=== PATIENT | female | born 1965 | race Caucasian/White ===

== ENCOUNTER → 2016-12-27 | Outpatient (CLI) | payer OTHER ==
--- NOTE | 2016-12-27 11:35 | USB ---
Reason for exam: clinical finding. History: Patient is nulliparous. Benign right breast aspiration of the right breast, April 07, 2013. Benign right breast aspiration additional of the right breast, April 07, 2013. Indicated problem(s): palpable abnormality in both breasts. Physical Findings: Nurse Summary: right 1cm 10 o'clock movable, left 9 o'clock 0.5cm and 3 o'clock 0.5cm (nurse dw). US Breast BILAT Right breast ultrasound includes all four quadrants, the retroareolar region and axilla. Finding demonstrates 0.6 x 0.7 x 0.6cm septated, cystic lesion at 12 o'clock, a 0.6 x 0.7 x 0.5cm cystic lesion at 3 o'clock, a 0.8 x 0.7 x 0.4cm cystic lesion at 8 o'clock and a 0.4 x 0.5 x 0.3cm cystic lesion at 10 o'clock. Left breast ultrasound includes all four quadrants, the retroareolar region and axilla. Finding demonstrates a 1.0 x 1.2 x 0.6cm septated, cystic lesion at 1 o'clock, a 1.3 x 1.1 x 0.9cm cystic lesion at 2 o'clock, a 2.2 x 2.4 x 1.7cm cystic lesion at 9 o'clock and a 1.3 x 1.2 x 1.2cm cystic lesion at 9 o'clock. These results were verbally communicated with the patient and result sheet given to the patient on 12/27/16. ASSESSMENT: Probably benign, BI-RAD 3 RECOMMENDATION: Ultrasound of both breasts in 6 months.
== END | disposition home or self-care (01) ==
LOC: RADUSWWP 10:23
PROVIDERS: ATTEND Obstetrics & Gynecology
DX: R92.8 Other abnormal and inconclusive findings on diagnostic imaging of breast (principal)

== ENCOUNTER → 2017-04-04 | Outpatient (CLI) | payer BC, OTHER ==
--- NOTE | 2017-04-05 10:32 | ECHOF ---
Referral Reason:R94.31 Abnormal electrocardiog MEASUREMENTS -------- HEIGHT: 177.8 cm WEIGHT: 74.8 kg BP: 131/79 RVIDd: 2.4 cm (< 3.3) IVSd: 1.1 cm (0.6 - 1.1) LVIDd: 4.2 cm (3.9 - 5.3) LVPWd: 1.1 cm (0.6 - 1.1) IVSs: 1.7 cm LVIDs: 2.6 cm LVPWs: 1.6 cm LAESV Index (A-L): 13.87 ml/m Ao Diam: 2.9 cm (2.0 - 3.7) AV Cusp: 1.9 cm (1.5 - 2.6) LA Diam: 2.6 cm (2.7 - 3.8) MV EXCURSION: 13.666 mm (> 18.000) MV EF SLOPE: 112 mm/s (70 - 150) EPSS: 0.3 cm MV E Jose R: 0.67 m/s MV DecT: 342 ms MV A Jose R: 0.56 m/s MV E/A Ratio: 1.20 RAP: 5.00 mmHg RVSP: 24.21 mmHg FINDINGS -------- Sinus rhythm. This was a technically good study. The left ventricular size is normal. There is borderline concentric left ventricular hypertrophy. Overall left ventricular systolic function is normal with, an EF between 60 - 65 %. The right ventricle is normal in size and function. Normal LA size by volume 22+/-6 ml/m2. The right atrium is normal in size. The aortic valve is trileaflet, and appears structurally normal. No aortic stenosis or regurgitation. The mitral valve leaflets are mildly thickened. Mild mitral regurgitation is present. Trace tricuspid regurgitation present. Right ventricular systolic pressure is normal at < 35 mmHg. There is no evidence of pulmonary hypertension. The pulmonic valve was not well visualized. The aortic root size is normal. Normal inferior vena cava with normal inspiratory collapse consistent with estimated right atrial pressure of 5 mmHg. The pericardium is normal. There is no pericardial effusion. CONCLUSIONS -------- 1. Sinus rhythm. 2. Trace tricuspid regurgitation present. 3. Right ventricular systolic pressure is normal at < 35 mmHg. 4. There is no evidence of pulmonary hypertension. 5. The pulmonic valve was not well visualized. 6. The aortic root size is normal. 7. There is no pericardial effusion. 8. This was a technically good study. 9. The left ventricular size is normal. 10. There is borderline concentric left ventricular hypertrophy. 11. Overall left ventricular systolic function is normal with, an EF between 60 - 65 %. 12. Normal LA size by volume 22+/-6 ml/m2. 13. The aortic valve is trileaflet, and appears structurally normal. No aortic stenosis or regurgitation. 14. The mitral valve leaflets are mildly thickened. 15. Mild mitral regurgitation is present. CRIB PAD MAKER: Rocco Short RDCS
== END | disposition home or self-care (01) ==
LOC: RADECHMAIN 11:25
PROVIDERS: ATTEND Family Medicine
DX: I08.1 Rheumatic disorders of both mitral and tricuspid valves (principal)
CPT/HCPCS: 93306

== ENCOUNTER → 2017-04-24 | Outpatient (CLI) | payer BC ==
--- NOTE | 2017-04-24 13:46 | ECHOS ---
STRESS ECHOCARDIOGRAM DATE OF SERVICE: 04/24/2017 MEDICATIONS:: Lisinopril, Wellbutrin, Cymbalta. BASELINE HEART RATE: 102 BASELINE BLOOD PRESSURE: 111/59 MAXIMUM HEART RATE: 152 MAXIMUM BLOOD PRESSURE: 188/61 85% MPHR: 143 100% MPHR: 168 METS: 9.9 MAXIMUM STAGE REACHED: III TOTAL EXERCISE TIME: 8:15 INDICATION OF THE STUDY: Chest discomfort. STRESS DATA: Pretesting physical examination showed a heart rate 102 beats per minute and pressure of 111/59 mmHg. Baseline EKG showed sinus mechanism. The patient exercised on the treadmill according to Edvin protocol for a total of 8 minutes and 15 seconds and achieved 9.9 METs. Max heart rate was 152, which is about 90% of maximum predicted heart rate. Maximum blood pressure was 188/61 mmHg. Clinically, the patient did not have any symptoms of chest pain or discomfort during the testing or in the recovery time. The EKG showed about 0.[address] changes. ECHOCARDIOGRAM IMAGES: On echocardiogram images from parasternal long axis view, parasternal short-axis view, apical 4 chamber and apical 2 chamber view were obtained as the baseline images, at the peak of the heart rate, as well as on recovery and the echocardiogram images showed overall good augmentation in the left ventricular systolic function without any evidence of wall motion abnormalities consistent with ischemia. CONCLUSION: 1. Good exercise capacity. 2. Mild EKG changes in response to exercise. 3. Normal echocardiogram in response to exercise. JACLYN / TONE: [id number] /
== END | disposition home or self-care (01) ==
LOC: RADNMMAIN 10:58
PROVIDERS: ATTEND Family Medicine
DX: R94.31 Abnormal electrocardiogram [ECG] [EKG] (principal)
CPT/HCPCS: 93017; 93350

== ENCOUNTER → 2017-05-23 | Outpatient (CLI) | payer BC ==
--- NOTE | 2017-05-23 11:28 | MM ---
Reason for exam: follow-up at short interval from prior study. Last mammogram was performed 1 year ago. History: Patient is nulliparous. Benign right breast aspiration of the right breast, April 07, 2013. Benign right breast aspiration additional of the right breast, April 07, 2013. Physical Findings: Nurse Summary: 1 x 1cm nodule in the right breast at 9 o'clock, a 1 x 1.5cm nodule in the right breast at 10 o'clock, a 1 x 1cm nodule in the left breast at 1 o'clock and a 1.5 x 1cm nodule in the left breast at 9 o'clock (nurse ts). MG Diagnostic Mammo w CAD ARPITA Bilateral CC and MLO view(s) were taken. Prior study comparison: May 11, 2016, bilateral MG diagnostic mammo w CAD ARPITA. November 19, 2014, bilateral MG diagnostic mammo w CAD ARPITA. The breast tissue is heterogeneously dense. This may lower the sensitivity of mammography. Finding: There are typically benign multiple circumscribed masses in both breasts, waxing and waning most compatible with benign cysts. No suspicious abnormality. No significant changes in finding since May 11, 2016 and November 19, 2014. These results were verbally communicated with the patient and result sheet given to the patient on 05/23/17. ASSESSMENT: Benign, BI-RAD 2 RECOMMENDATION: Routine screening mammogram of both breasts in 1 year.
--- NOTE | 2017-05-23 11:33 | USB ---
Reason for exam: follow-up at short interval from prior study. History: Patient is nulliparous. Benign right breast aspiration of the right breast, April 07, 2013. Benign right breast aspiration additional of the right breast, April 07, 2013. US Breast BILAT Right breast ultrasound includes all four quadrants, the retroareolar region and axilla. Finding demonstrates a 0.4 x 0.3 x 0.4cm septated, cystic lesion at 12 o'clock, a 0.3 x 0.3 x 0.4cm cystic lesion at 12 o'clock, a 0.7 x 0.7 x 0.5cm cystic lesion at 3 o'clock, a 0.7 x 0.5 x 0.6cm cystic lesion at 8 o'clock and a 0.9 x 0.7 x 0.5cm septated, cystic lesion at 10 o'clock. Left breast ultrasound includes all four quadrants, the retroareolar region and axilla. Finding demonstrates several cystic lesions measuring .7 x 0.6 x 0.5cm at 1 o'clock, 1.4 x 1.2 x 1.1cm at 3 o'clock, 1.3 x 1.2 x 1.1cm at 7 o'clock and 0.8 x 0.7 x 0.6cm at 8 o'clock. These results were verbally communicated with the patient and result sheet given to the patient on 05/23/17. ASSESSMENT: Benign, BI-RAD 2 RECOMMENDATION: Routine screening mammogram of both breasts in 1 year.
--- NOTE | 2017-05-23 14:37 | BD ---
EXAMINATION TYPE: MG DEXA axial skeleton. DATE OF EXAM: 05/23/2017 COMPARISON: NONE CLINICAL HISTORY: screening osteoporosis Height: 5'9 Weight: 188 FRAX RISK QUESTIONS: Alcohol (3 or more units per day): no Family History (Parent hip fracture): no Glucocorticoids (More than 3mos): no (Ex: prednisone, prednisolone, methylprednisolone, dexamethasone, and hydrocortisone). History of Fracture in Adulthood: yes Secondary Osteoporosis: 1. Type 1 Diabetes: no 2. Hyperthyroidism: no 3. Menopause before 45: na 4. Malnutrition: no 5. Chronic liver disease: no Rheumatoid Arthritis: no Current Tobacco Use: no RISK FACTORS HISTORY OF: If Premenopausal, do you have irregular periods: MEDICATIONS: Additional Medications: blood pressure, Additional History: EXAM MEASUREMENTS: Bone mineral densitometry was performed using the [employer] System. Bone mineral density as measured about the Lumbar spine is: ----- L1-L4(G/cm2): 1.265 T Score Values are as follows: ----- L2: 0.0 ----- L3: 1.1 ----- L4: 1.4 ----- L1-L4:0.7 Bone mineral density about the R hip (g/cm2): 0.949 Bone mineral density about the L hip (g/cm2): 0.937 T Score values are as follows: -----R Neck: -0.6 -----L Neck: -0.7 -----R Total: -0.4 -----L Total: -0.2 IMPRESSION: Normal (Values between +1 and -1 indicate normal bone mass). Consider repeating this study in 5 year s or sooner if there is some new clinical indication. NOTE: T-SCORE=SD OF THE YOUNG ADULT MEAN.
== END | disposition home or self-care (01) ==
LOC: RADMAMWWP 09:03
PROVIDERS: ATTEND Obstetrics & Gynecology
DX: R92.8 Other abnormal and inconclusive findings on diagnostic imaging of breast (principal); Z13.820 Encounter for screening for osteoporosis
CPT/HCPCS: 77080; 76641; G0204

== ENCOUNTER 2018-12-30 11:42 | Emergency (ER) | payer MEDICAID ==
[2018-12-30 11:58] VITALS: RESP 18
[2018-12-30] MEDS ORDERED: DEXAMETHASONE SOD PHOSPHATE 10 MG/ML 1 ML VIAL IV STA (12:14)
[2018-12-30] MEDS ORDERED: SODIUM CHLORIDE 0.9% 2,000 ML IV ONE (12:14)
[2018-12-30] MEDS ORDERED: diphenhydrAMINE 50 MG/ML 1 ML VIAL IVP STA (12:14)
[2018-12-30] MEDS ORDERED: KETOROLAC 30 MG/ML 1 ML VIAL IVP STA (12:14)
[2018-12-30] MEDS ORDERED: METOCLOPRAMIDE 5 MG/ML 2 ML VIAL IVP STA (12:14)
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
[2018-12-30 14:01] LABS: Basophils % (A) 0 %; Eosinophils # (A) 0.1 k/uL (0-0.7); Eosinophils % (A) 2 %; HCT 49.5 % (34.0-46.0); HGB 15.8 gm/dL (11.4-16.0); Lymphocytes # (A) 1.7 k/uL (1.0-4.8); Lymphocytes % (A) 36 %; MCH 30.9 pg (25.0-35.0); MCHC 31.9 g/dL (31.0-37.0); MCV 96.8 fL (80.0-100.0); Mean Platelet Volume 7.1; Monocytes # (A) 0.2 k/uL (0-1.0); Monocytes % (A) 5 %; Neutrophils # (A) 2.5 k/uL (1.3-7.7); Neutrophils % (A) 54 %; Platelet Count 287 k/uL (150-450); RBC 5.11 m/uL (3.80-5.40); RDW 12.6 % (11.5-15.5); WBC 4.6 k/uL (3.8-10.6)
[2018-12-30 14:17] LABS: Calcium 9.9 mg/dL (8.4-10.2); Potassium 4.8 mmol/L (3.5-5.1)
[2018-12-30 15:00] LABS: Appearance,Urine Clear (Clear); Bilirubin,Urine Negative (Negative); Blood,Urine Negative (Negative); Color,Urine Yellow; Glucose,Urine (UA) Negative (Negative); Ketones,Urine Negative (Negative); Leukocyte Esterase,Urine Negative (Negative); Nitrite,Urine Negative (Negative); PH, Urine 5.5 (5.0-8.0); Protein,Urine Negative (Negative); Specific Gravity,Urine 1.008 (1.001-1.035); Urobilinogen,Urine <2.0 mg/dL (<2.0)
[2018-12-30 15:55] VITALS: BP 124/72; PULSE 85; TEMP 98
== END 2018-12-30 15:57 | disposition home or self-care (01) ==
LOC: EC 11:42
DX: G44.209 Tension-type headache, unspecified, not intractable (principal); F32.9 Major depressive disorder, single episode, unspecified; Z79.899 Other long term (current) drug therapy
CPT/HCPCS: 36415; 80048; 85025; 81003; 99284; 96374; 96375 ×3; 96361 ×3; J1200; J1100; J2765; J1885

== ENCOUNTER 2020-08-08 15:26 | Emergency (ER) | payer MEDICAID ==
[2020-08-08 15:34] VITALS: TEMP 98.4
[2020-08-08] MEDS ORDERED: METOCLOPRAMIDE 5 MG/ML 2 ML VIAL IVP STA (15:49)
[2020-08-08] MEDS ORDERED: SODIUM CHLORIDE 0.9% 1,000 ML IV STA (15:49)
--- NOTE | 2020-08-08 15:57 | ED ---
General Adult HPI - General Chief complaint: Dizziness Stated complaint: Dizziness,Chest Pain Time Seen by Provider: 08/08/20 15:36 Source: patient Mode of arrival: ambulatory Limitations: no limitations - History of Present Illness Initial comments: Patient is a 55-year-old female with history of anxiety and depression, presenting to the emergency Department with complaints of lightheadedness, dizziness, chest tightness. Patient states she has been under a lot of stress over the past 3 years dealing with a domestic fine situation and now dealing w ith the courts. Patient states that over the past week she she has been experiencing intermittent chest tightness. Patient states this morning when she got up she rolled over and had an episode of dizziness with the room spinning. Patient states this lasted about a minute and then it went away. Patient felt like she was nauseous afterwards. Patient did have one episode of vomiting today. She states she continues to feel lightheadedness but no more of the room spinning. She does have a little bit of chest tightness today as well. She continues to have a little bit of nausea and a mild headache. She denies any changes in her vision, no shortness of breath, no abdominal pain, no diarrhea. She denies any recent fever or chills. She denies any falls or trauma. He denies any numbness and tingling to extremities. She had a stress test in 2017 which was normal. She states she does take lisinopril, a low dose as needed secondary to her blood pressure rising with the recent stress. Patient has no further complaints at this time. Upon arrival to the ER, her vital signs are stable. - Related Data Home Medications Medication Instructions Recorded Confirmed Cholecalciferol [Vitamin D3 (25 1,000 unit PO DAILY 12/30/18 12/30/18 Mcg = 1000 Iu)] DULoxetine HCL [Cymbalta] 120 mg PO DAILY 12/30/18 12/30/18 Multivitamins, Thera [Multivitamin 1 tab PO DAILY 12/30/18 12/30/18 (formulary)] buPROPion HCL [Wellbutrin XL] 150 mg PO DAILY 12/30/18 12/30/18 lisinopriL [Zestril] 5 mg PO DAILY 12/30/18 12/30/18 Previous Rx's Medication Instructions Recorded Metoclopramide [Reglan] 10 mg PO TID PRN #15 tab 08/08/20 Allergies Allergy/AdvReac Type Severity Reaction Status Date / Time No Known Allergies Allergy Verified 08/08/20 15:35 Review of Systems ROS Statement: Those systems with pertinent positive or pertinent negative responses have been documented in the HPI. ROS Other: All systems not noted in ROS Statement are negative. Past Medical History Past Medical History: No Reported History History of Any Multi-Drug Resistant Organisms: None Reported Past Surgical History: No Surgical Hx Reported Additional Past Surgical History / Comment(s): d&C Past Psychological History: Anxiety, Depression Past Alcohol Use History: Occasional Past Drug Use History: None Reported General Exam - General Exam Comments Initial Comments: GENERAL: Patient is well-developed and well-nourished. Patient is nontoxic and in no acute distress, patient seems very anxious and stressed. HEAD: Atraumatic, normocephalic. EYES: Pupils equal round and reactive to light, extraocular movements intact, sclera anicteric, conjunctiva are normal. Eyelids were unremarkable. ENT: TMs normal, nares patent, oropharynx clear without exudates. Moist mucous membranes. NECK: Normal range of motion, supple without lymphadenopathy or JVD. LUNGS: Unlabored respirations. Breath sounds clear to auscultation bilaterally and equal. No wheezes rales or rhonchi. HEART: Regular rate and rhythm without murmurs, rubs or gallops. ABDOMEN: Soft, nontender, normoactive bowel sounds. No guarding, no rebound. No masses appreciated. : Deferred MUSCULOSKELETAL: Normal extremities with adequate strength and normal range of motion, no pitting or edema. No clubbing or cyanosis. NEUROLOGICAL: Patient is alert and oriented x 3. Motor and sensory are also intact. Cranial nerves II through XII grossly intact. Symmetrical smile. Normal speech, normal gait. PSYCH: Normal mood, normal affect. SKIN: Warm, Dry, normal turgor, no rashes or lesions noted. Limitations: no limitations Course Vital Signs 08/08/20 15:28 Temperature 98.4 F Pulse Rate 80 Respiratory 18 Rate Blood Pressure 143/86 O2 Sat by Pulse 100 Oximetry EKG Findings - EKG Comments: EKG Findings:: Normal sinus rhythm, normal ECG, no signs of an acute process. Ventricular rate 75, NV interval 126, QTC 416. Medical Decision Making - Medical Decision Making Patient is a 55-year-old female here for an episode of dizziness And this morning as well as some mild nausea, intermittent chest tightness has been happening over the past week. Patient admits to being under a lot of stress over the past few years, and has been increasing over the past 2 weeks. She did have a few panic attacks last weekend. Her vital signs are stable upon arrival, her EKG showed no acute process. Her exam is unremarkable, no acute process, no acute neuro deficits. Chest x-ray also is normal. Lab work, urine and troponin are all normal. Patient was given some fluids and Reglan. She states that she feels improvement in her symptoms, she does not have any dizziness or nausea at this time. She states she feels much better. I discussed with patient that her symptoms are most likely related to her stress, it does sound like she experienced an episode of vertigo this morning. I did not feel like her chest tightness over the past week is ischemic in nature, I think this is more anxiety. Patient is stable for discharge today. I do recommend following up with her PCP in the next 1-3 days. She is in agreement this plan of care. Return parameters were discussed with the patient and she verbalized understanding. Case discussed with Dr. Allison. - Lab Data Result diagrams: 08/08/20 15:49 08/08/20 15:49 Lab Results 08/08/20 08/08/20 08/08/20 Range/Units 15:49 15:49 15:49 WBC 5.3 (3.8-10.6) k/uL RBC 4.71 (3.80-5.40) m/uL Hgb 15.1 (11.4-16.0) gm/dL Hct 45.2 (34.0-46.0) % MCV 95.9 (80.0-100.0) fL MCH 32.1 (25.0-35.0) pg MCHC 33.4 (31.0-37.0) g/dL RDW 12.0 (11.5-15.5) % Plt Count 239 (150-450) k/uL MPV 7.4 Neutrophils % 81 % Lymphocytes % 13 % Monocytes % 4 % Eosinophils % 1 % Basophils % 0 % Neutrophils # 4.3 (1.3-7.7) k/uL Lymphocytes # 0.7 L (1.0-4.8) k/uL Monocytes # 0.2 (0-1.0) k/uL Eosinophils # 0.0 (0-0.7) k/uL Basophils # 0.0 (0-0.2) k/uL PT (9.0-12.0) sec INR (<1.2) APTT (22.0-30.0) sec Sodium 138 (137-145) mmol/L Potassium 4.7 (3.5-5.1) mmol/L Chloride 100 (98-107) mmol/L Carbon Dioxide 29 (22-30) mmol/L Anion Gap 9 mmol/L BUN 17 (7-17) mg/dL Creatinine 0.98 (0.52-1.04) mg/dL Est GFR (CKD-EPI)AfAm 75 (>60 ml/min/1.73 sqM) Est GFR (CKD-EPI)NonAf 65 (>60 ml/min/1.73 sqM) Glucose 126 H (74-99) mg/dL Calcium 9.9 (8.4-10.2) mg/dL Magnesium 2.1 (1.6-2.3) mg/dL Total Bilirubin 0.6 (0.2-1.3) mg/dL AST 28 (14-36) U/L ALT 23 (4-34) U/L Alkaline Phosphatase 90 (38-126) U/L Troponin I <0.012 (0.000-0.034) ng/mL Total Protein 7.5 (6.3-8.2) g/dL Albumin 4.6 (3.5-5.0) g/dL Urine Color Urine Appearance (Clear) Urine pH (5.0-8.0) Ur Specific Butler (1.001-1.035) Urine Protein (Negative) Urine Glucose (UA) (Negative) Urine Ketones (Negative) Urine Blood (Negative) Urine Nitrite (Negative) Urine Bilirubin (Negative) Urine Urobilinogen (<2.0) mg/dL Ur Leukocyte Esterase (Negative) 08/08/20 08/08/20 Range/Units 15:50 Unknown WBC (3.8-10.6) k/uL RBC (3.80-5.40) m/uL Hgb (11.4-16.0) gm/dL Hct (34.0-46.0) % MCV (80.0-100.0) fL MCH (25.0-35.0) pg MCHC (31.0-37.0) g/dL RDW (11.5-15.5) % Plt Count (150-450) k/uL MPV Neutrophils % % Lymphocytes % % Monocytes % % Eosinophils % % Basophils % % Neutrophils # (1.3-7.7) k/uL Lymphocytes # (1.0-4.8) k/uL Monocytes # (0-1.0) k/uL Eosinophils # (0-0.7) k/uL Basophils # (0-0.2) k/uL PT 9.8 (9.0-12.0) sec INR 0.9 (<1.2) APTT 21.0 L (22.0-30.0) sec Sodium (137-145) mmol/L Potassium (3.5-5.1) mmol/L Chloride (98-107) mmol/L Carbon Dioxide (22-30) mmol/L Anion Gap mmol/L BUN (7-17) mg/dL Creatinine (0.52-1.04) mg/dL Est GFR (CKD-EPI)AfAm (>60 ml/min/1.73 sqM) Est GFR (CKD-EPI)NonAf (>60 ml/min/1.73 sqM) Glucose (74-99) mg/dL Calcium (8.4-10.2) mg/dL Magnesium (1.6-2.3) mg/dL Total Bilirubin (0.2-1.3) mg/dL AST (14-36) U/L ALT (4-34) U/L Alkaline Phosphatase (38-126) U/L Troponin I (0.000-0.034) ng/mL Total Protein (6.3-8.2) g/dL Albumin (3.5-5.0) g/dL Urine Color Yellow Urine Appearance Clear (Clear) Urine pH 8.0 (5.0-8.0) Ur Specific Butler 1.011 (1.001-1.035) Urine Protein Negative (Negative) Urine Glucose (UA) Negative (Negative) Urine Ketones Negative (Negative) Urine Blood Negative (Negative) Urine Nitrite Negative (Negative) Urine Bilirubin Negative (Negative) Urine Urobilinogen <2.0 (<2.0) mg/dL Ur Leukocyte Esterase Negative (Negative) Disposition Clinical Impression: Vertigo, Anxiety, Nausea Disposition: HOME SELF-CARE Condition: Stable Instructions (If sedation given, give patient instructions): Vertigo (ED) Additional Instructions: Please return to the Emergency Department if symptoms worsen or any other concerns. May take Reglan for any additional nausea or vertigo type symptoms. Please follow-up with your regular doctor in 1-3 days. Prescriptions: Metoclopramide [Reglan] 10 mg PO TID PRN #15 tab PRN Reason: GERD Is patient prescribed a controlled substance at d/c from ED?: No Referrals: Donavon Lance MD [Primary Care Provider] - 1-2 days
[2020-08-08 16:05] LABS: Basophils % (A) 0 %; Eosinophils % (A) 1 %; HCT 45.2 % (34.0-46.0); HGB 15.1 gm/dL (11.4-16.0); Lymphocytes # (A) 0.7 k/uL (1.0-4.8); Lymphocytes % (A) 13 %; MCH 32.1 pg (25.0-35.0); MCHC 33.4 g/dL (31.0-37.0); MCV 95.9 fL (80.0-100.0); Mean Platelet Volume 7.4; Monocytes # (A) 0.2 k/uL (0-1.0); Monocytes % (A) 4 %; Neutrophils # (A) 4.3 k/uL (1.3-7.7); Neutrophils % (A) 81 %; Platelet Count 239 k/uL (150-450); RBC 4.71 m/uL (3.80-5.40); WBC 5.3 k/uL (3.8-10.6)
[2020-08-08 16:14] LABS: Albumin 4.6 g/dL (3.5-5.0); Calcium 9.9 mg/dL (8.4-10.2); Magnesium 2.1 mg/dL (1.6-2.3); Potassium 4.7 mmol/L (3.5-5.1); Total Bilirubin 0.6 mg/dL (0.2-1.3); Total Protein 7.5 g/dL (6.3-8.2)
[2020-08-08 16:21] LABS: Appearance,Urine Clear (Clear); Bilirubin,Urine Negative (Negative); Blood,Urine Negative (Negative); Color,Urine Yellow; Glucose,Urine (UA) Negative (Negative); Ketones,Urine Negative (Negative); Leukocyte Esterase,Urine Negative (Negative); Nitrite,Urine Negative (Negative); Protein,Urine Negative (Negative); Specific Gravity,Urine 1.011 (1.001-1.035); Urobilinogen,Urine <2.0 mg/dL (<2.0)
[2020-08-08 16:21] LABS: INR 0.9 (<1.2); Prothrombin Time 9.8 sec (9.0-12.0)
--- NOTE | 2020-08-08 17:14 | XR ---
EXAMINATION TYPE: XR chest 2V DATE OF EXAM: 08/08/2020 COMPARISON: NONE HISTORY: Chest pain TECHNIQUE: 2 views FINDINGS: Heart and mediastinum are normal. Lungs are clear. Diaphragm is normal. Bony thorax is inta ct. Pulmonary vascularity is normal. IMPRESSION: Normal chest. A mild pectus excavatum chest deformity noted.
[2020-08-08 17:48] VITALS: BP 112/76; PULSE 72; RESP 16
== END 2020-08-08 17:48 | disposition home or self-care (01) ==
LOC: EC 15:26
DX: R42 Dizziness and giddiness (principal); R11.0 Nausea; F41.9 Anxiety disorder, unspecified; F32.9 Major depressive disorder, single episode, unspecified; Z79.899 Other long term (current) drug therapy
CPT/HCPCS: 36415; 93005; 80053; 83735; 84484; 85025; 85610; 85730; 81003; 71046; 99284; 96374; 96361 ×2; J2765

== ENCOUNTER → 2020-10-22 | Outpatient (CLI) | payer MEDICAID | END | disposition home or self-care (01) | LOC: LABWHC1 16:49 | PROVIDERS: ATTEND Family Medicine | DX: Z20.822 Contact with and (suspected) exposure to COVID-19 (principal) | CPT/HCPCS: U0003; C9803; U0005 ==

== ENCOUNTER → 2020-12-16 | Outpatient (CLI) | payer MEDICAID ==
--- NOTE | 2020-12-16 10:27 | XR ---
EXAMINATION TYPE: XR chest 2V DATE OF EXAM: 12/16/2020 COMPARISON: Chest x-ray 08/08/2020 HISTORY: Dyspnea TECHNIQUE: Frontal and lateral views of the chest are obtained. FINDINGS: There is no focal air space opacity, pleural effusion, or pneumothorax seen. The cardiac silhouette size is within normal limits. The osseous structures are intact, pectus deformity is aga in noted. Prominent lung volumes could be indicative of underlying COPD. IMPRESSION: No acute cardiopulmonary process.
== END | disposition home or self-care (01) ==
LOC: RADXRMAIN 10:06
PROVIDERS: ATTEND Family Medicine
DX: R06.00 Dyspnea, unspecified (principal)
CPT/HCPCS: 71046

== ENCOUNTER → 2020-12-23 | Outpatient (CLI) | payer MEDICAID ==
--- NOTE | 2020-12-27 08:38 | MM ---
Reason for exam: screening (asymptomatic). Last mammogram was performed 3 years and 7 months ago. History: Patient is nulliparous. Benign right breast aspiration of the right breast, April 07, 2013. Benign right breast aspiration additional of the right breast, April 07, 2013. Physical Findings: A clinical breast exam by your physician is recommended on an annual basis and results should be correlated with mammographic findings. MG Screening Mammo w CAD Bilateral CC and MLO view(s) were taken. Prior study comparison: May 23, 2017, bilateral MG diagnostic mammo w CAD [facility]. May 11, 2016, bilateral MG diagnostic mammo w CAD [facility]. November 19, 2014, bilateral MG diagnostic mammo w CAD [facility]. The breast tissue is heterogeneously dense. This may lower the sensitivity of mammography. There is chronic nodularity in the left breast. No significant changes when compared with prior studies. ASSESSMENT: Benign, BI-RAD 2 RECOMMENDATION: Routine screening mammogram of both breasts in 1 year.
== END | disposition home or self-care (01) ==
LOC: RADMAMWWP 14:46
PROVIDERS: ATTEND Obstetrics & Gynecology
DX: Z12.31 Encounter for screening mammogram for malignant neoplasm of breast (principal)
CPT/HCPCS: 77067

== ENCOUNTER → 2021-01-17 | Outpatient (CLI) | payer MEDICAID ==
[~2021-01-17] MED LIST: AMINOPHYLLINE 500 MG/20 ML VIAL IV ONE; REGADENOSON 0.4 MG/5 ML SYRINGE IV PRN
--- NOTE | 2021-01-17 11:17 | ECHOF ---
Referral Reason:R06.09 dyspnea MEASUREMENTS -------- HEIGHT: 177.8 cm WEIGHT: 83.9 kg BP: RVIDd: 3.0 cm (< 3.3) IVSd: 1.1 cm (0.6 - 1.1) LVIDd: 3.7 cm (3.9 - 5.3) LVPWd: 0.9 cm (0.6 - 1.1) IVSs: 1.6 cm LVIDs: 2.6 cm LVPWs: 1.4 cm LA Diam: 2.3 cm (2.7 - 3.8) Ao Diam: 3.0 cm (2.0 - 3.7) AV Cusp: 2.0 cm (1.5 - 2.6) MV EXCURSION: 15.184 mm (> 18.000) MV EF SLOPE: 87 mm/s (70 - 150) EPSS: 0.5 cm MV E Jose R: 0.60 m/s MV DecT: 250 ms MV A Jose R: 0.68 m/s MV E/A Ratio: 0.89 RAP: 5.00 mmHg RVSP: 22.41 mmHg FINDINGS -------- Sinus rhythm. This was a technically adequate study. The left ventricular size is normal. Left ventricular wall thickness is normal. Overall left vent ricular systolic function is normal with, an EF between 55 - 60 %. The right ventricle is normal in size. The left atrium is normal in size. The right atrium is normal in size. Interatrial and interventricular septum intact. The aortic valve is trileaflet, and appears structurally normal. No aortic stenosis or regurgitation. The mitral valve is normal. Mild tricuspid regurgitation present. Right ventricular systolic pressure is normal at < 35 mmHg. Trace/mild (physiologic) pulmonic regurgitation. The aortic root size is normal. Normal inferior vena cava with normal inspiratory collapse consistent with estimated right atrial pre ssure of 5 mmHg. There is no pericardial effusion. CONCLUSIONS -------- 1. The left ventricular size is normal. 2. Left ventricular wall thickness is normal. 3. Overall left ventricular systolic function is normal with, an EF between 55 - 60 %. 4. The aortic valve is trileaflet, and appears structurally normal. No aortic stenosis or regurgitati on. 5. Mild tricuspid regurgitation present. 6. Trace/mild (physiologic) pulmonic regurgitation. 7. There is no pericardial effusion. GRADES 1 THRU 5 TEACHER: Mikayla Polo RDCS
--- NOTE | 2021-01-17 13:39 | NM ---
EXAMINATION TYPE: NM stress lexiscan cardiolite DATE OF EXAM: 01/17/2021 COMPARISON: NONE HISTORY: Dyspnea TECHNIQUE: After the intravenous administration of 10.2 mCi Tc 99m Sestamibi - Cardiolite resting SP ECT images acquired 45 minutes post injection. At peak stress 26.0 mCi Tc 99m Sestamibi - Stress images obtained 40 minutes post injection The patient was stressed with 0.4mg Lexiscan. FINDINGS: There is diminished radiotracer accumulation along the anterior wall on stress images. This hasn't mo re normal appearance on the resting images. No artifact is identified. Stress-induced ischemic change may be present. This appears underrepresented on the polar maps. Wall motion is normal Ejection fraction is calculated to be 63 %. IMPRESSION: 1. Mild stress-induced ischemic change appears to be present through the anterior wall. Correlate for EKG changes
--- NOTE | 2021-01-18 08:36 | EST ---
EXERCISE STRESS INDICATION: Dyspnea. AGE: 55 SEX: F HT: 5'10" WT: 185 LBS. PROTOCOL: Lexziscan Cardiolite STAGE: n/a DURATION OF EXERCISE: n/a HEART RATE REST: 69 BLOOD PRESSURE REST: 135/80 MAXIMUM HEART RATE ACHIEVED: 105 MAXIMUM BLOOD PRESSURE: 135/80 85% MPHR: 140 100% MPHR: 165 METS: n/a RESULTS: Baseline EKG shows sinus rhythm, normal axis, normal intervals. Patient was given intravenous Lexiscan as per protocol. Did not have chest pain or diagnostic ST-segment depression. CONCLUSIONS: 1. Negative stress test by EKG criteria. 2. Cardiolite portion of the stress test will be reported separately. MMODL / IJN: [id number] /
== END | disposition home or self-care (01) ==
LOC: RADECHMAIN 08:18
PROVIDERS: ATTEND Family Medicine
DX: I08.8 Other rheumatic multiple valve diseases (principal)
CPT/HCPCS: 93017; 93306; 78452; A9500; J2785

== ENCOUNTER → 2021-01-19 | Outpatient (CLI) | payer MEDICAID ==
[2021-01-19 12:38] LABS: HCT 43.9 % (34.0-46.0); HGB 14.1 gm/dL (11.4-16.0); MCV 99.9 fL (80.0-100.0); Mean Platelet Volume 8.1; Platelet Count 254 k/uL (150-450); RBC 4.39 m/uL (3.80-5.40); RDW 11.8 % (11.5-15.5); WBC 5.2 k/uL (3.8-10.6)
[2021-01-19 12:48] LABS: Potassium 4.3 mmol/L (3.5-5.1)
== END | disposition home or self-care (01) ==
LOC: LABPAT 11:51
PROVIDERS: ATTEND Internal Medicine
DX: Z01.812 Encounter for preprocedural laboratory examination (principal); R94.39 Abnormal result of other cardiovascular function study
CPT/HCPCS: 36415; 80051; 82565; 84520; 85027

== ENCOUNTER 2021-01-27 10:52 | Day surgery (SDC) | payer MEDICAID ==
[2021-01-25 12:10] VITALS: BMI 26.5
[~2021-01-27 10:52] MED LIST changes: +ALPRAZolam 0.25 MG TAB PO PRN; +ALPRAZolam 0.5 MG TAB PO PRN; -AMINOPHYLLINE 500 MG/20 ML VIAL IV ONE; +ASPIRIN 325 MG TAB PO STA; +ATORVASTATIN 80 MG TAB PO STA; +HEPARIN SODIUM,PORCINE 10,000 UNIT in SODIUM CHLORIDE 0.9% 1,000 ML IRRIGATION PRN; +HEPARIN SODIUM,PORCINE 2,500 UNIT in SODIUM CHLORIDE 0.9% 250 ML IRRIGATION PRN; +NITROGLYCERIN SL TABS 0.4 MG TAB SUBLINGUAL PRN; -REGADENOSON 0.4 MG/5 ML SYRINGE IV PRN; +SODIUM CHLORIDE 0.9% 1,000 ML in EMPTY BAG 1 BAG IV ONE
[2021-01-27] MEDS ORDERED: SODIUM CHLORIDE 0.9% 1,000 ML IV ONE (11:13)
[2021-01-27 11:21] VITALS: RESP 16; TEMP 98.9
[2021-01-27] MEDS ORDERED: fentaNYL (PF) 50 MCG/ML 2 ML AMP ONE (11:33)
[2021-01-27] MEDS ORDERED: HEPARIN SODIUM 1,000 UN/ML (10ML VL) ONE (11:33)
[2021-01-27] MEDS ORDERED: LIDOCAINE 1% INJ 10MG/ML (20 ML MDV) ONE (11:34)
[2021-01-27] MEDS ORDERED: VERAPAMIL 2.5 MG/ML 2 ML AMP ONE (11:34)
[2021-01-27] MEDS ORDERED: LIDOCAINE (PF) 10 MG/ML 5ML AMP SQ ONE (12:02)
[2021-01-27] MEDS: MIDAZOLAM 2 MG/2 ML VIAL IV ONE ×2 (12:02→12:06)
[2021-01-27] MEDS ORDERED: fentaNYL (PF) 50 MCG/ML 2 ML AMP IV ONE (12:02)
[2021-01-27] MEDS ORDERED: VERAPAMIL SYRINGE (5 MG/10 ML) INTRAARTER ONE (12:14)
[2021-01-27] MEDS ORDERED: IOPAMIDOL-370 125ML BTL INJ ONE (12:22)
[2021-01-27] MEDS ORDERED: RX INFO: IV CONTRAST WAS GIVEN 1 EACH MISC MISCELLANE PRN (13:07)
--- NOTE | 2021-01-27 13:07 | P.CARDCATH ---
Description of Procedure: PROCEDURES PERFORMED: Left heart catheterization, bilateral coronary angiography INDICATION: Abnormal stress test HISTORY: Patient is a pleasant 55-year-old female with recent COVID-19 infection who has been having increased episodes of dyspnea on exertion. She does have a strong family history of coronary artery disease. She did have a Lexiscan stress test with noted apical inducible ischemia and therefore heart catheterization was recommended. CONSENT:I have discussed the risks, benefits and alternative therapies for the a antwan-mentioned procedure and for both sedation/analgesia as well as necessary blood product administration, if indicated, as they pertain to this patient. The patient has indicated understanding and acceptance of the risks and procedures discussed. PROCEDURE: After the risks, benefits and alternatives of the above mentioned procedure explained in detail with the patient, informed consent was obtained. Patient was taken to the catheterization lab and prepped and draped in usual fashion. 1% lidocaine was used to anesthetize the right radial artery. A 6- Hungarian sheath was placed in the right radial artery using modified Seldinger technique. Left coronary angiography was performed with a 5-Hungarian JL 3.5 catheter and right coronary angiography was performed with a 5-Hungarian JR5 catheter in various views. A 5-Hungarian pigtail catheter was inserted into the left ventricle and pressure measurements were obtained. Left ventriculography was performed in the MAR projection with a power injection. The right radial sheath was removed and a TR band was placed with hemostasis achieved. The patient tolerated the procedure well. Patient was transported back to the post catheterization holding area in stable condition. Conscious Sedation: Patient was monitored under the direct supervision of vision of myself for conscious sedation using Versed and fentanyl for a total duration of 21 minutes HEMODYNAMICS: Aortic: 110/62 LV: 108/2, LVEDP 14 SELECTIVE CORONARY ARTERIOGRAPHY: LEFT MAIN: There appears to be no left main with separate ostia of the LAD and circumflex. LEFT ANTERIOR DESCENDING CORONARY ARTERY: LAD is a large caliber vessel which wraps around to the apex. There is no significant stenosis. LEFT CIRCUMFLEX CORONARY ARTERY: Left circumflex is a moderate caliber vessel without significant stenosis. RIGHT CORONARY ARTERY: The right coronary artery is a large caliber vessel which gives off a PDA and PLV branch and is the dominant vessel. There is no significant stenosis. FINAL IMPRESSION: 1. Normal coronary arteries as described above. 2. Normal left-sided filling pressures PLAN: 1. Aggressive risk factor modification per most recent ACC/AHA guidelines. 2. We will stop her aspirin as well as metoprolol. Follow-up in the office in 1-2 weeks.
[2021-01-27 16:49] VITALS: BP 122/72; PULSE 62
== END 2021-01-27 17:07 | disposition home or self-care (01) ==
LOC: CATHCVL 10:52
PROVIDERS: ATTEND Internal Medicine
DX: R06.00 Dyspnea, unspecified (principal); R94.31 Abnormal electrocardiogram [ECG] [EKG]; R94.39 Abnormal result of other cardiovascular function study; Z86.16 Personal history of COVID-19; I10 Essential (primary) hypertension; Z82.49 Family history of ischemic heart disease and other diseases of the circulatory system; Z79.899 Other long term (current) drug therapy
CPT/HCPCS: 93458; C1769; C1894; J2250; J2001; J3010; J1644; Q9967

== ENCOUNTER → 2021-04-01 | Outpatient (CLI) | payer MEDICAID ==
--- NOTE | 2021-04-01 16:31 | XR ---
EXAMINATION TYPE: XR knee complete RT DATE OF EXAM: 04/01/2021 CLINICAL HISTORY: Right knee pain after fall injury TECHNIQUE: Three views of the right knee are obtained. Fourth sunrise view. COMPARISON: None. FINDINGS: There is no acute fracture/dislocation evident in right knee. Mild to moderate tricompartm ent joint space loss and spurring. Patellar articulation satisfactory on the sunrise view. The overly ing soft tissue appears unremarkable. IMPRESSION: As above
== END | disposition home or self-care (01) ==
LOC: RADXRMAIN 15:58
PROVIDERS: ATTEND Nurse Practitioner
DX: S89.91XA Unspecified injury of right lower leg, initial encounter (principal); W19.XXXA Unspecified fall, initial encounter

== ENCOUNTER → 2021-04-06 | Outpatient (CLI) | payer MEDICAID ==
--- NOTE | 2021-04-06 16:09 | MR ---
EXAMINATION TYPE: MR knee RT wo con DATE OF EXAM: 04/06/2021 COMPARISON: Right knee x-ray 5 days ago HISTORY: Rt knee pain S/P fall 04-01-21. TECHNIQUE: Multiplanar, multisequence imaging of the right knee is performed without IV contrast. FINDINGS: MEDIAL MENISCUS: Some oblique signal posterior horn does not definitively extend to articular surface . LATERAL MENISCUS: More prominent signal in the lateral meniscus involving anterior and posterior horn s with some diminished size and deformity to the posterior meniscus. CRUCIATE LIGAMENTS: The anterior and posterior cruciate ligaments are intact and unremarkable. COLLATERAL LIGAMENTS: The medial collateral ligament and lateral collateral ligament complex are inta ct and unremarkable. EXTENSOR MECHANISM: Visualized quadriceps and patellar tendons are intact. EFFUSION: No significant suprapatellar joint effusion. POPLITEAL CYST: Tiny popliteal/holt cyst. TRICOMPARTMENT SPACES: Moderate narrowing with mild spurring patellofemoral femoral compartment. Mild narrowing medial and lateral tibiofemoral compartments with mild to moderate spurring. CARTILAGE: Some chondromalacia patella with thinning of articular cartilage along the inferior aspect of the posterior patellar pole. BONE MARROW SIGNAL: No focal abnormal marrow signal is appreciated. OTHER: No additional significant abnormality is appreciated. IMPRESSION: 1. At least intrasubstance tear through the lateral meniscus but full-thickness tear posterior horn i s thought present. 2. Intrasubstance tear posterior horn medial meniscus without full-thickness tear. 3. Mild to moderate tricompartment degenerative changes as detailed above. 4. Tiny popliteal cyst.
== END | disposition home or self-care (01) ==
LOC: RADMRIMAIN 11:55
PROVIDERS: ATTEND Family Medicine
DX: S83.281A Other tear of lateral meniscus, current injury, right knee, initial encounter (principal); S83.241A Other tear of medial meniscus, current injury, right knee, initial encounter; M17.11 Unilateral primary osteoarthritis, right knee

== ENCOUNTER → 2021-04-21 | Outpatient (CLI) | payer MEDICAID ==
[2021-04-21 16:30] LABS: Basophils # (A) 0.03 X 10*3/uL (0.00-0.10); Basophils % (A) 0.9 %; Eosinophils # (A) 0.07 X 10*3/uL (0.04-0.35); Eosinophils % (A) 2.1 %; HCT 43.2 % (37.2-46.3); HGB 13.6 g/dL (12.0-15.0); Lymphocytes % (A) 41.4 %; MCH 30.6 pg (27.0-32.0); MCHC 31.5 g/dL (32.0-37.0); MCV 97.1 fL (80.0-97.0); Mean Platelet Volume 11.6 fL (9.5-12.2); Monocytes # (A) 0.26 X 10*3/uL (0.20-1.00); Monocytes % (A) 7.7 %; Neutrophils # (A) 1.62 X 10*3/uL (1.80-7.70); Neutrophils % (A) 47.9 %; Platelet Count 249 X 10*3/uL (140-440); RBC 4.45 X 10*6/uL (4.10-5.20); RDW 12.3 % (11.5-14.5); WBC 3.38 X 10*3/uL (4.50-10.00)
[2021-04-21 19:29] LABS: African American GFR (CKD) 58.5 (60.0-200.0); Albumin 4.5 g/dL (3.8-4.9); Albumin/Globulin Ratio 2.14 (1.60-3.17); Anion Gap 14.9 mmol/L (4.00-12.00); BUN/Creat Ratio 14.33 Ratio (12.00-20.00); Blood Urea Nitrogen 17.2 mg/dL (9.0-27.0); Calcium 9.5 mg/dL (8.7-10.3); Carbon Dioxide 22.1 mmol/L (21.6-31.8); Globulin 2.1 g/dL (1.6-3.3); Non-African American GFR(CKD) 50.5 (60.0-200.0); Potassium 4.4 mmol/L (3.5-5.5); Total Bilirubin 0.4 mg/dL (0.30-1.20); Total Protein 6.6 g/dL (6.2-8.2)
== END | disposition home or self-care (01) ==
LOC: LABWHC1 10:39
PROVIDERS: ATTEND Nurse Practitioner
DX: R55 Syncope and collapse (principal)
CPT/HCPCS: 36415; 80053; 83735; 85025

== ENCOUNTER → 2021-04-27 | Outpatient (CLI) | payer MEDICAID ==
--- NOTE | 2021-04-27 08:28 | CT ---
EXAMINATION TYPE: CT brain wo/w con DATE OF EXAM: 04/27/2021 COMPARISON: None HISTORY: R55 Syncope and collapse CONTRAST: CT scan of the head is performed without and with IV Contrast, patient injected with 100 mL of Isovue 300. Unenhanced followed by contrast enhanced CT of the brain is submitted for evaluation. The ventricles are midline. There is no evidence for intracranial hemorrhage or extra-axial collection. No mass e ffects are identified. Visualized bony calvarium is intact. Contrast is administered and no enhanci ng lesions are detected. No pathologic enhancement is identified. If symptoms persist consider MRI. IMPRESSION: Unremarkable CT brain with and without contrast.
== END | disposition home or self-care (01) ==
LOC: RADCTMAIN 07:32
PROVIDERS: ATTEND Family Medicine
DX: R55 Syncope and collapse (principal)
CPT/HCPCS: 70470; Q9967

== ENCOUNTER → 2021-06-14 | Outpatient (CLI) | payer MEDICAID ==
[2021-06-14 11:32] LABS: Basophils # (A) 0.1 k/uL (0-0.2); Basophils % (A) 1 %; Eosinophils # (A) 0.1 k/uL (0-0.7); Eosinophils % (A) 2 %; HCT 46.9 % (34.0-46.0); HGB 14.8 gm/dL (11.4-16.0); Lymphocytes # (A) 1.9 k/uL (1.0-4.8); Lymphocytes % (A) 42 %; MCH 31.2 pg (25.0-35.0); MCHC 31.5 g/dL (31.0-37.0); MCV 99.1 fL (80.0-100.0); Mean Platelet Volume 7.9; Monocytes # (A) 0.3 k/uL (0-1.0); Monocytes % (A) 7 %; Neutrophils # (A) 2.2 k/uL (1.3-7.7); Neutrophils % (A) 47 %; Platelet Count 268 k/uL (150-450); RBC 4.73 m/uL (3.80-5.40); RDW 12.2 % (11.5-15.5); WBC 4.7 k/uL (3.8-10.6)
[2021-06-14 11:58] LABS: Potassium 3.8 mmol/L (3.5-5.1)
== END | disposition home or self-care (01) ==
LOC: LABPAT 10:56
PROVIDERS: ATTEND Orthopaedic Surgery
DX: Z01.812 Encounter for preprocedural laboratory examination (principal); M23.91 Unspecified internal derangement of right knee
CPT/HCPCS: 36415; 80051; 85025

== ENCOUNTER 2021-06-16 08:19 | Day surgery (SDC) | payer MEDICAID ==
[2021-06-14 15:24] VITALS: BMI 27.2
--- NOTE | 2021-06-15 20:17 | HP ---
HISTORY AND PHYSICAL REASON FOR ADMISSION: Surgery 06/16/2021. HISTORY OF PRESENT ILLNESS: Rakel Voss is a 56-year-old patient seen with progressive right knee pain. We discussed options for treatment. She elected to proceed with right knee arthroscopy. Consent is obtained. PAST MEDICAL HISTORY: Hypertension. PAST SURGICAL HISTORY: Noncontributory. MEDICATIONS: Ambien, Cymbalta, metoprolol. ALLERGIES: None. SOCIAL HISTORY: Denies tobacco use. PHYSICAL EVALUATION OF THE RIGHT KNEE: Range of motion is -7 to 80. Mild effusion. Tenderness along the medial and lateral joint lines. Positive medial Noelle's. Positive lateral Noelle's. Ligaments stable. Hip rotation without pain. Distal neurovascular exam intact. RADIOGRAPHS: Right knee radiographs revealed mild to moderate osteoarthritic changes. MRI right knee revealed a lateral meniscal tear, possible medial meniscal tear and osteoarthritic changes. IMPRESSION: 1. Internal derangement of right knee lateral meniscal tear. 2. Hypertension. PLAN: Right knee arthroscopy with partial meniscectomy and debridement. Surgery is 06/16/2021. MMODL / IJN: [id number] /
[~2021-06-16 08:19] MED LIST changes: -ALPRAZolam 0.25 MG TAB PO PRN; -ALPRAZolam 0.5 MG TAB PO PRN; -ASPIRIN 325 MG TAB PO STA; -ATORVASTATIN 80 MG TAB PO STA; +DEXAMETHASONE SOD PHOSPHATE 4 MG/ML 1 ML VIAL IV ONE; -HEPARIN SODIUM,PORCINE 10,000 UNIT in SODIUM CHLORIDE 0.9% 1,000 ML IRRIGATION PRN; -HEPARIN SODIUM,PORCINE 2,500 UNIT in SODIUM CHLORIDE 0.9% 250 ML IRRIGATION PRN; +HYDROmorphone 0.5 MG/0.5 ML SYRINGE IVP PRN; +LACTATED RINGERS 1,000 ML IV SCH; +LIDOCAINE 1% (10MG/ML) FOR IV START INTRADERMA PRN; +MIDAZOLAM 2 MG/2 ML VIAL IV PRN; -NITROGLYCERIN SL TABS 0.4 MG TAB SUBLINGUAL PRN; +ONDANSETRON 4 MG/2 ML VIAL IVP ONE; -SODIUM CHLORIDE 0.9% 1,000 ML in EMPTY BAG 1 BAG IV ONE
[2021-06-16 09:00] LABS: Glucose,Whole Blood 83 mg/dL (75-99)
[2021-06-16] MEDS ORDERED: PROPOFOL 10 MG/ML 20 ML VIAL IV ONE (09:57)
[2021-06-16] MEDS ORDERED: .fentaNYL (PF) 50 MCG/ML 2 ML AMP ONE (09:57)
[2021-06-16] MEDS ORDERED: KETOROLAC 15 MG/ML 1 ML VIAL ONE (09:57)
[2021-06-16] MEDS ORDERED: LIDOCAINE 1% INJ 10MG/ML (20 ML MDV) ONE (09:57)
[2021-06-16] MEDS ORDERED: MIDAZOLAM 2 MG/2 ML VIAL ONE (09:57)
[2021-06-16] MEDS ORDERED: BUPIVACAINE (PF) 0.25% 30 ML VIAL SQ ONE ×2 (09:58→10:33)
[2021-06-16 10:53] VITALS: TEMP 96.1
--- NOTE | 2021-06-16 10:54 | P.OP ---
Date of Procedure: 06/16/21 Preoperative Diagnosis: Internal derangement right knee Postoperative Diagnosis: 1. Complex tear lateral meniscus right knee 2. Grade 3 chondromalacia medial femoral condyle right knee 3. Grade 3 chondromalacia lateral femoral condyle right knee 4. Reactive synovitis medial, lateral and suprapatellar compartments right knee Procedure(s) Performed: 1. Arthroscopic partial lateral meniscectomy right knee 2. Arthroscopic chondroplasty medial femoral condyle right knee 3. Arthroscopic chondroplasty lateral femoral condyle right knee 4. Arthroscopic partial synovectomy, lateral and suprapatellar compartments right knee Anesthesia: SHASHAA, local Surgeon: Matti Gardner Estimated Blood Loss (ml): 7 Pathology: none sent Condition: stable Disposition: PACU Indications for Procedure: 56-year-old patient seen with progressive right knee pain. After having treatment options discussed, she elected to proceed with arthroscopy. Operative Findings: See description of procedure Description of Procedure: Patient was taken to the operative suite. Patient underwent a general anesthetic by the department of anesthesia. Patient was given preoperative antibiotics. The right lower extremity was placed in a well-padded arthroscopic leg aguilar. The right leg was prepped and draped in the normal sterile orthopedic fashion. A lateral parapatellar and suprapatellar incision was made. Trochars were inserted. Arthroscopy was initiated. Suprapatellar pouch revealed diffuse thick reactive synovitis. The patellofemoral joint appeared to articulate congruently. There was grade 2 chondromalacia of the patella with no significant osteochondral tears present. The scope was guided into the medial gutter. No loose bodies or plica were identified The scope was then guided into the medial compartment. A medial parapatellar incision was made. Trocar inserted followed by probe. The medial meniscus was found to be stable. There were grade 3 chondromalacia changes of the medial femoral condyle with some large osteochondral flap tears present. There was thick reactive synovitis anteriorly. I introduced a motorized shaver and performed a chondroplasty of the medial femoral condyle getting down to stable osteochondral tissue. I performed a partial synovectomy decompressing the thick reactive synovitis anteriorly. The shaver was removed. The residual osteochondral surface was stable. There was good decompression of the synovitis. Scope and probe were then guided into the intercondylar notch. Cruciates were identified, probed and found to be stable. The scope and probe were then guided into lateral compartment. There was a complex tear involving the mid body and posterior horns of the lateral meniscus. There were grade 3 chondromalacia changes of the lateral femoral condyle with osteochondral tears present. There was thick reactive synovitis anteriorly. I performed a partial lateral meniscectomy getting down to stable meniscal tissue. I performed a chondroplasty of the lateral femoral condyle getting down to stable osteochondral tissue. I performed a partial synovectomy decompressing the thick reactive synovitis. The shaver was removed. The residual meniscus was stable. The residual osteochondral surface appears stable. There was good decompression of the synovitis. The scope was in guided back into the suprapatellar compartment. I introduced a motorized shaver into the suprapatellar compartment. I debrided some piecemeal fragments of meniscus that I encountered. I performed a partial synovectomy decompressing the thick reactive synovitis. The shaver was removed. There was good decompression of the synovitis. I now took one more look around the entire knee, no residual debris. Instruments were now removed from the joint. The joint was infiltrated with .25% Marcaine. Steri-Strips were applied to the portal sites. Sterile dressings were applied. The patient was placed into a RUTH hose. No tourniquet was utilized. The patient was awakened, transf erred to a bed and taken to recovery stable satisfactory condition.
[2021-06-16 11:17] VITALS: RESP 16
[2021-06-16 12:44] VITALS: BP 126/74; PULSE 70
== END 2021-06-16 13:10 | disposition home or self-care (01) ==
LOC: OR 08:19
PROVIDERS: ATTEND Orthopaedic Surgery
DX: M23.200 Derangement of unspecified lateral meniscus due to old tear or injury, right knee (principal); M94.261 Chondromalacia, right knee; M65.861 Other synovitis and tenosynovitis, right lower leg; I10 Essential (primary) hypertension; Z86.16 Personal history of COVID-19; F32.A Depression, unspecified; F41.9 Anxiety disorder, unspecified; Z79.899 Other long term (current) drug therapy
CPT/HCPCS: 29881; J2250; J1100; J0690; J2405; J2001; J3010; J1885; J2704

== ENCOUNTER → 2021-08-23 | Outpatient (CLI) | payer MEDICAID ==
[2021-08-23 13:49] LABS: Appearance,Urine Clear (Clear); Bilirubin,Urine Negative (Negative); Blood,Urine Negative (Negative); Color,Urine Yellow; Glucose,Urine (UA) Negative (Negative); Hyaline Casts,Urine 34 /lpf (0-2); Ketones,Urine Trace (Negative); Leukocyte Esterase,Urine Small (Negative); Mucus,Urine Few /hpf; Nitrite,Urine Negative (Negative); PH, Urine 5.5 (5.0-8.0); Protein,Urine Trace (Negative); RBC,Urine 2 /hpf (0-5); Specific Gravity,Urine 1.021 (1.001-1.035); Squamous Epithelial Cell,Urine 1 /hpf (0-4); Urobilinogen,Urine <2.0 mg/dL (<2.0); WBC,Urine 3 /hpf (0-5)
[2021-08-23 19:00] LABS: HCT 42.8 % (37.2-46.3); HGB 13.6 g/dL (12.0-15.0); MCH 31.1 pg (27.0-32.0); MCHC 31.8 g/dL (32.0-37.0); MCV 97.9 fL (80.0-97.0); Mean Platelet Volume 11.5 fL (9.5-12.2); NRBC Per 100 WBC 0 /100 WBCS (0.0-0.0); Platelet Count 246 X 10*3/uL (140-440); RBC 4.37 X 10*6/uL (4.10-5.20); RDW 12.1 % (11.5-14.5); WBC 3.29 X 10*3/uL (4.50-10.00)
[2021-08-23 19:06] LABS: African American GFR (CKD) 56.8 (60.0-200.0); Albumin 4.3 g/dL (3.8-4.9); Albumin/Globulin Ratio 1.7 (1.60-3.17); Anion Gap 12.1 mmol/L (10.00-18.00); BUN/Creat Ratio 10.98 Ratio (12.00-20.00); Blood Urea Nitrogen 13.5 mg/dL (9.0-27.0); Calcium 9.4 mg/dL (8.7-10.3); Carbon Dioxide 24.4 mmol/L (20.0-27.5); Globulin 2.5 g/dL (1.6-3.3); Total Bilirubin 0.4 mg/dL (0.30-1.20); Total Protein 6.8 g/dL (6.2-8.2)
== END | disposition home or self-care (01) ==
LOC: LABWHC1 12:03
PROVIDERS: ATTEND Neurological Surgery
DX: Z01.812 Encounter for preprocedural laboratory examination (principal)
CPT/HCPCS: 36415; 80053; 81001; 85027

== ENCOUNTER → 2022-01-26 | Outpatient (CLI) | payer MEDICAID ==
[2022-01-26 18:23] LABS: Basophils # (A) 0.03 X 10*3/uL (0.00-0.10); Basophils % (A) 0.6 %; Eosinophils # (A) 0.07 X 10*3/uL (0.04-0.35); Eosinophils % (A) 1.5 %; HCT 45.6 % (37.2-46.3); HGB 14.3 g/dL (12.0-15.0); Immature Grans, Automated 0.2 %; Lymphocytes # (A) 1.57 X 10*3/uL (0.90-5.00); Lymphocytes % (A) 32.8 %; MCHC 31.4 g/dL (32.0-37.0); MCV 95.6 fL (80.0-97.0); Mean Platelet Volume 11.4 fL (9.5-12.2); Monocytes # (A) 0.29 X 10*3/uL (0.20-1.00); Monocytes % (A) 6.1 %; NRBC Per 100 WBC 0 /100 WBCS (0.0-0.0); Neutrophils # (A) 2.81 X 10*3/uL (1.80-7.70); Neutrophils % (A) 58.8 %; Platelet Count 248 X 10*3/uL (140-440); RBC 4.77 X 10*6/uL (4.10-5.20); RDW 11.8 % (11.5-14.5); WBC 4.78 X 10*3/uL (4.50-10.00)
[2022-01-26 18:35] LABS: Erythrocyte Sedimentation Rate 6 mm/Hr (0-30)
[2022-01-26 18:50] LABS: Rheumatoid Factor, Qnt <10 IU/mL (0-15)
[2022-01-26 18:56] LABS: ALT 17 U/L (8-44); AST 20 U/L (13-35); African American GFR (CKD) 59.1 (60.0-200.0); Albumin 4.6 g/dL (3.8-4.9); Albumin/Globulin Ratio 2.09 (1.60-3.17); Alkaline Phosphatase 81 U/L (41-126); BUN/Creat Ratio 14.87 Ratio (12.00-20.00); Blood Urea Nitrogen 17.7 mg/dL (9.0-27.0); C Reactive Protein <0.30 mg/dL (0.00-0.80); Calcium 9.9 mg/dL (8.7-10.3); Carbon Dioxide 25.3 mmol/L (20.0-27.5); Chloride 101 mmol/L (96-109); Globulin 2.2 g/dL (1.6-3.3); Glucose 96 mg/dL (70-110); Potassium 4.8 mmol/L (3.5-5.5); Sodium 140 mmol/L (135-145); Total Protein 6.8 g/dL (6.2-8.2)
== END | disposition home or self-care (01) ==
LOC: LABWHC1 11:03
PROVIDERS: ATTEND Family Medicine
DX: E78.5 Hyperlipidemia, unspecified (principal); M19.90 Unspecified osteoarthritis, unspecified site
CPT/HCPCS: 36415; 80053; 82465; 83695; 83718; 83721; 84443; 85025; 85652; 86038; 86140; 86431

== ENCOUNTER → 2022-01-26 | Outpatient (CLI) | payer MEDICAID ==
--- NOTE | 2022-01-26 12:00 | XR ---
EXAMINATION TYPE: XR wrist complete RT DATE OF EXAM: 01/26/2022 COMPARISON: None HISTORY: Fall, pain with rotation TECHNIQUE: 4 view right wrist FINDINGS: No acute fractures or dislocations are evident. Small ossification superior to the ulnar st yloid may be an old fracture. There is some slight prominence of the scapholunate space 0.4 cm there is scapholunate disassociation can be considered. This could be further evaluated with MRI. Alignment appears normal. Soft tissues appear normal. IMPRESSION: 1. Prominence of the scapholunate space. This could be further evaluated with MRI to evaluate for sc apholunate disassociation. 2. Acute or subacute fractures not identified.
== END | disposition home or self-care (01) ==
LOC: RADXRMAIN 11:22
PROVIDERS: ATTEND Family Medicine
DX: M25.531 Pain in right wrist (principal)

== ENCOUNTER → 2022-02-07 | Outpatient (CLI) | payer MEDICAID ==
--- NOTE | 2022-02-07 13:11 | US ---
EXAMINATION TYPE: US carotid duplex BILAT DATE OF EXAM: 02/07/2022 COMPARISON: NONE CLINICAL HISTORY: R42 DIZZINESS AND GIDDINESS. HTN controlled with meds. TECHNIQUE: Carotid duplex ultrasound examination. Indirect Doppler criteria was utilized. FINDINGS: EXAM MEASUREMENTS: RIGHT: Peak Systolic Velocity (PSV) cm/sec ----- Right CCA: 86.6 ----- Right ICA: 76.8 ----- Right ECA: 93.0 ICA/CCA ratio: 0.9 RIGHT: End Diastole cm/sec ----- Right CCA: 19.8 ----- Right ICA: 31.8 ----- Right ECA: 18.2 LEFT: Peak Systolic Velocity (PSV) cm/sec ----- Left CCA: 103.9 ----- Left ICA: 110.8 ----- Left ECA: 67.7 ICA/CCA ratio: 1.1 LEFT: End Diastole cm/sec ----- Left CCA: 25.9 ----- Left ICA: 39.6 ----- Left ECA: 11.0 VERTEBRALS (direction of flow): Right Vertebral: Antegrade Left Vertebral: Antegrade Rhythm: Normal [employer] NOTES: No wall thickening or plaque. No elevated velocities. IMPRESSION: No evidence for hemodynamically significant stenosis. Criteria for Assigning % of Stenosis / Diameter reduction (Estimation based on the indirect measurements of the internal carotid artery velocities (ICA PSV). 1. Normal (no stenosis)=ICA PSV < 125 cm/s: ratio < 2.0: ICA EDV<40 cm/s. 2. Less than 50% stenosis=ICA PSV < 125 cm/s: ratio < 2.0: ICA EDV<40 cm/s. 3. 50 to 69% stenosis=ICA PSV of 125 to 230 cm/s: ration 2.0 ? 4.0: ICA EDV 40-100 cm/s. 4. Greater than 70% stenosis to near occlusion= ICA PSV > 230 cm/s: ratio > 4.0: ICA EDV > 100 cm/s. 5. Near occlusion= ICA PSV velocities may be low or undetectable: variable ratio and ICA EDV. 6. Total occlusion=unable to detect flow.
== END | disposition home or self-care (01) ==
LOC: RADUSWWP 12:20
PROVIDERS: ATTEND Family Medicine
DX: R42 Dizziness and giddiness (principal)
CPT/HCPCS: 93880

== ENCOUNTER → 2022-03-31 | Outpatient (CLI) | payer MEDICAID ==
--- NOTE | 2022-04-01 05:08 | MR ---
EXAMINATION TYPE: MR shoulder RT wo/w con DATE OF EXAM: 03/31/2022 COMPARISON: None HISTORY: Pain and mass right shoulder, Abnormal xray CONTRAST: Standard multiplanar, multisequence MRI departmental protocol images were obtained without contrast a nd with 8.5 mL intravenous Gadavist gadolinium contrast. There is a conglomeration of multiple rounded fluid densities in the humeral head and consistent with benign cysts. The subscapularis tendon is intact. There is small amount of fluid around the subscapularis tendon. G lenoid lakeisha appear intact. The biceps tendon is intact. There is small shoulder joint effusion. Ther e is a full-thickness defect in the supraspinatus tendon on the anterior aspect. The scapula is intac t. The infraspinatus tendon is intact. There is spurring at the AC joint. No significant subacromial impingement. No fracture seen. The contrast images show no pathologic enhancement. IMPRESSION: Small full-thickness tear of the anterior supraspinatus tendon. No retraction. Small joint effusion. Hypertrophic spurring at the AC joint. No significant subacromial impingement. There is 2.3 cm fluid signal sharply marginated lesion in the humeral head consistent with benign cys ts.
== END | disposition home or self-care (01) ==
LOC: RADMRIMAIN 17:38
PROVIDERS: ATTEND Neurological Surgery
DX: M75.111 Incomplete rotator cuff tear or rupture of right shoulder, not specified as traumatic (principal); M89.311 Hypertrophy of bone, right shoulder
CPT/HCPCS: 73223; A9585

== ENCOUNTER → 2022-05-15 | Outpatient (CLI) | payer MEDICAID ==
--- NOTE | 2022-05-15 18:09 | MR ---
EXAMINATION TYPE: MR cervical spine wo/w con DATE OF EXAM: 05/15/2022 INDICATION: Patient age:Female; 57 years old; Reason for study: M43.02 SPONDYLOLYSIS, CERVICAL REGION. Neck pain into right shoulder, muscle spasms . History of neck injury, History of surgery 09-29-21. COMPARISON: None. TECHNIQUE: Multi planar, multi sequence imaging was performed utilizing: T1-weighted, T2-weighted, an d turbo inversion recovery imaging of the cervical spine. IV Contrast: 9 cc Gadavist FINDINGS: Alignment: The cervical vertebral bodies have preserved heights. Alignment is within normal limits gi katie patient positioning. Bones: No abnormal bony edema on inversion recovery sequences. Postsurgical changes to C5-C6 and C7. Multilevel degenerative disc disease is noted and most pronounced at the C5-C6 and C7. vertebral lev els. No abnormal postcontrast enhancement. Cord: The spinal cord is unremarkable with regards to their signal intensity and morphology. No abnor mal postcontrast enhancement. Discs: Multilevel disc desiccation is present. C2-C3: No significant disc pathology. The spinal canal is patent. No neural foraminal stenosis. C3-C4: No significant disc pathology. The spinal canal is patent. Bilateral facet and uncovertebral joint arthropathy are present with mild right neural foraminal stenosis. The left neural foramen is p atent. C4-C5: No significant disc pathology. The spinal canal is patent. Bilateral facet and uncovertebral joint arthropathy are present with mild bilateral neural foraminal stenosis. C5-C6: Postsurgical changes with osteophyte complex is present with mild spinal canal stenosis. Bila teral facet and uncovertebral joint arthropathy are present with moderate bilateral neural foraminal stenosis. C6-C7: No significant disc pathology. The spinal canal is patent. Bilateral facet and uncovertebral joint arthropathy are present with moderate right and mild left neural foraminal stenosis. C7-T1: No significant disc pathology. The spinal canal is patent. Bilateral facet and uncovertebral joint arthropathy are present with mild bilateral neural foraminal stenosis. Other: None. IMPRESSION: 1. No evidence for significant spinal canal stenosis. No abnormal postcontrast enhancement. 2. Post surgical changes with osteophyte complex at C5-C6 with at least mild spinal canal stenosis. Additionally there is moderate bilateral neural foraminal stenosis at this level. 3. C6-C7 moderate right neural foraminal stenosis.
== END | disposition home or self-care (01) ==
LOC: RADMRIMAIN 14:38
PROVIDERS: ATTEND Neurological Surgery
DX: M47.22 Other spondylosis with radiculopathy, cervical region (principal); M50.123 Cervical disc disorder at C6-C7 level with radiculopathy; M48.02 Spinal stenosis, cervical region; M99.71 Connective tissue and disc stenosis of intervertebral foramina of cervical region
CPT/HCPCS: 72156; A9585

== ENCOUNTER → 2022-12-13 | Outpatient (CLI) | payer MEDICAID ==
--- NOTE | 2022-12-14 08:27 | MM ---
Reason for Exam: Screening (asymptomatic). Last mammogram was performed 2 year(s) and 0 month(s) ago. Patient History: Menarche at age 11. Patient has no children. Postmenopausal. 04/07/2013, Benign Cyst Aspiration on the right side. 04/07/2013, Benign Cyst Aspiration on the right side. Risk Values: Sheron 5 year model risk: 1.6%. NCI Lifetime model risk: 9.5%. Prior Study Comparison: 11/19/2014 Bilateral Diagnostic Mammogram, [facility]. 05/11/2016 Bilateral Diagnostic Mammogram, [facility]. 05/23/2017 Bilateral Diagnostic Mammogram, [facility]. 12/23/2020 Bilateral Screening Mammogram, [facility]. Tissue Density: The breast tissue is heterogeneously dense. This may lower the sensitivity of mammography. Findings: Analyzed By CAD. There is no suspicious group of microcalcifications within either breast. There is a 6 mm ovoid partially obscured mass within the lower inner right breast at middle depth. There is a new 17 mm round mass within the lower inner left breast at middle depth. Stable appearing 10 mm partially obscured mass within the upper outer left breast at middle to posterior depth. Increase in size of a partially. 9 mm round mass in the upper outer left breast at anterior depth. Stable chronic nodularity within both breasts. Overall Assessment: Incomplete: need additional imaging evaluation, BI-RAD 0 Management: Diagnostic Breast Ultrasound of both breasts. Complete ultrasound of both breasts is recommended. A clinical breast exam by your physician is recommended on an annual basis and results should be correlated with mammographic findings. [facility] will attempt to contact patient to return for supplemental views and ultrasound if indicated. Note on Sheron scores and lifetime risk: 1. A Sheron score greater than 3% is considered moderate risk. If this is the case, consider specialist referral to assess eligibility for a risk reducing agent. If overall lifetime risk for the development of breast cancer is 20% or higher, the patient may qualify for future screening with alternating mammogram and breast MRI. Electronically signed and approved by: Ender Holly D.O.
== END | disposition home or self-care (01) ==
LOC: RADMAMWWP 12:56
PROVIDERS: ATTEND Obstetrics & Gynecology
DX: Z12.31 Encounter for screening mammogram for malignant neoplasm of breast (principal); Z78.0 Asymptomatic menopausal state
CPT/HCPCS: 77063; 77067

== ENCOUNTER → 2022-12-19 | Outpatient (CLI) | payer MEDICAID ==
--- NOTE | 2022-12-19 14:51 | USB ---
Reason for Exam: Additional evaluation requested from abnormal screening. Patient History: Menarche at age 11. Patient has no children. Postmenopausal. 04/07/2013, Benign Cyst Aspiration on the right side. 04/07/2013, Benign Cyst Aspiration on the right side. Risk Values: Sheron 5 year model risk: 1.6%. NCI Lifetime model risk: 9.5%. Technique: Method: Whole Breast Handheld. Prior Study Comparison: 05/23/2017 Bilateral Diagnostic Mammogram, [facility]. 12/23/2020 Bilateral Screening Mammogram, [facility]. 12/13/2022 Bilateral MG 3D screening mammo w/cad, [facility]. Findings: The whole breast of both breasts, the axilla of both breasts and the retroareolar of both breasts were scanned. A complete US of all four quadrants of both breasts, axilla, and retro-areolar region were reviewed. No solid or cystic masses are identified.. Right: Multiple cysts are present, largest measuring 9 mm at 2:00 and 5 mm at 3:00. No suspicious solid lesion or axillary lymphadenopathy. Left: * Multiple scattered cysts are present. Largest at the 8:00 position, 4 cm from nipple measuring 1.3 cm, dominant mass on mammogram. Numerous additional cysts are present, especially at the o'clock position a small less than 6 mm. * *There is a 7 mm cystic appearing lesion o'clock position, 4 cm from the nipple. However, this demonstrates posterior shadowing, possibly due to adjacent dense tissue. Reassess in 6 months. * *In addition, 3:00 near the nipple, there is a 1.3 x 0.8 x 0.5 cm cyst cluster versus complex cyst versus cyst with a internal 5 mm lesion that should also be reassessed in 6 months. Overall Assessment: Probably benign, BI-RAD 3 Management: Diagnostic Breast Ultrasound of the left breast in 6 months. A clinical breast exam by your physician is recommended on an annual basis and results should be correlated with mammographic findings. This exam should not preclude additional follow-up of suspicious palpable abnormalities. Results were given to the patient verbally at the time of exam. Electronically signed and approved by: Dahiana Odell M.D. Radiologist
== END | disposition home or self-care (01) ==
LOC: RADUSWWP 13:36
PROVIDERS: ATTEND Obstetrics & Gynecology
DX: R92.8 Other abnormal and inconclusive findings on diagnostic imaging of breast (principal); Z78.0 Asymptomatic menopausal state

== ENCOUNTER → 2024-02-13 | Outpatient (CLI) | payer OTHER, MEDICARE | END | disposition home or self-care (01) | LOC: LABWHC1 11:11 | PROVIDERS: ATTEND Family Medicine | DX: I10 Essential (primary) hypertension (principal) | CPT/HCPCS: 36415; 80053; 80061; 84443; 85025 ==

== ENCOUNTER → 2024-07-16 | Outpatient (CLI) | payer MEDICARE, OTHER ==
--- NOTE | 2024-07-16 13:10 | MM ---
Reason for Exam: Follow-up at short interval from prior study. Last mammogram was performed 1 year(s) and 7 month(s) ago. Patient History: Menarche at age 11. Patient has no children. Postmenopausal. 04/07/2013, Benign Cyst Aspiration on the right side. 04/07/2013, Benign Cyst Aspiration on the right side. Risk Values: Sheron 5 year model risk: 1.7%. NCI Lifetime model risk: 9.1%. Tissue Density: The breasts are heterogeneously dense, which may obscure small masses. Findings: Analyzed By CAD. Multiple circumscribed masses bilaterally are redemonstrated. Largest lesion left breast nodule is not clearly seen. Some new small scattered circumscribed subcentimeter around masses are noted. There is a group of round circumscribed masses in the middle depth slightly medial aspect of the right breast that have increased in size from most recent mammogram. Suspect enlarging cyst but due to clustered appearance and increase in size measuring over 1 cm, follow-up advised. Overall Assessment: Incomplete: need additional imaging evaluation, BI-RAD 0 Management: Diagnostic Breast Ultrasound of the right breast. Targeted ultrasound right breast. Results were given to the patient verbally at the time of exam. Patient should continue monthly self-breast exams. A clinical breast exam by your physician is recommended on an annual basis. This exam should not preclude additional follow-up of suspicious palpable abnormalities. Note on Sheron scores and lifetime risk: 1. A Sheron score greater than 3% is considered moderate risk. If this is the case, consider specialist referral to assess eligibility for a risk reducing agent. 2. If overall lifetime risk for the development of breast cancer is 20% or higher, the patient may qualify for future screening with alternating mammogram and breast MRI. [facility], , 07/16/2024 1:08 PM. Electronically signed and approved by: Krishna Vela M.D.
== END | disposition home or self-care (01) ==
LOC: RADMAMWWP 12:30
PROVIDERS: ATTEND Family Medicine
DX: R92.8 Other abnormal and inconclusive findings on diagnostic imaging of breast (principal); Z78.0 Asymptomatic menopausal state; R92.333 Mammographic heterogeneous density, bilateral breasts
CPT/HCPCS: 77066; G0279; 77062

== ENCOUNTER → 2024-07-28 | Outpatient (CLI) | payer MEDICARE ==
--- NOTE | 2024-07-28 11:26 | USB ---
Reason for Exam: Additional evaluation requested from prior study. Patient History: Menarche at age 11. Patient has no children. Postmenopausal. 04/07/2013, Benign Cyst Aspiration on the right side. 04/07/2013, Benign Cyst Aspiration on the right side. Risk Values: Sheron 5 year model risk: 1.7%. NCI Lifetime model risk: 9.1%. Technique: Method: Targeted. Prior Study Comparison: 12/23/2020 Bilateral Screening Mammogram, [facility]. 12/13/2022 Bilateral MG 3D screening mammo w/cad, [facility]. 07/16/2024 Bilateral MG 3D diag mammo w/cad [facility], [facility]. Findings: The medial section of the breast of the right breast, the axilla of the right breast and the retroareolar of the right breast were scanned. Technique utilized:US breast limited RT Image; Ultrasound imaging of: All 4 quadrants, the retroareolar region and axilla. No evidence for organizing suspicious solid mass. Few scattered anechoic cysts some with thin septation. Cysts are seen at seen at 1:00 5 cm from nipple, 2:00 5 cm no nipple. Overall Assessment: Benign, BI-RAD 2 Management: Screening Mammogram of both breasts in 1 year. A clinical breast exam by your physician is recommended on an annual basis and results should be correlated with mammographic findings. This exam should not preclude additional follow-up of suspicious palpable abnormalities. Results were given to the patient verbally at the time of exam. [facility], , 07/28/2024 11:22 AM. Electronically signed and approved by: Bakari Escudero DO
== END | disposition home or self-care (01) ==
LOC: RADUSWWP 10:45
PROVIDERS: ATTEND Family Medicine
DX: R92.8 Other abnormal and inconclusive findings on diagnostic imaging of breast (principal); Z78.0 Asymptomatic menopausal state